=== PATIENT | male | born 1980 | race Caucasian/White ===

== ENCOUNTER 2017-02-10 12:54 | Emergency (ER) | payer MEDICAID ==
--- NOTE | ~2017-02-10 | CR173 ---
[facility] A Service of [facility] [place] RADIOLOGY TEXT RESULTS PATIENT: THELMA SALOMON LOCATION: SED : 84 UNIT #: [id number] AGE: [address]: Ugo Bonner MD SEX: M ORDER DR: [id number] [place] [address] [id number] E MR#: [id number] Acc #: [id number] NAME: THELMA SALOMON : 1980 SEX: M STUDY DATE/TIME: 02/10/2017 13:02 UNIT: SED ROOM: STUDY DESCRIPTION: CR Knee 3 Views Rt Attending Physician: Ugo Bonner M.D. Referring Physician: Ugo Bonner M.D. Ordering Physician: Ugo Bonner M.D. Primary Care Physician: No Primary Care Physician MEDICAL IMAGING REPORT This report is preliminary unless electronic signature is present. EXAM Three-view right knee. HISTORY Posterior knee pain x3 weeks, basketball injury. FINDINGS 3 views of the right knee demonstrates fragmentation of the tibial tubercle and mild prominence of the infrapatellar soft tissues could represent a component of patellar tendinopathy and old Abdirashid-Schlatter disease. No joint effusion. Remainder of the knee joint unremarkable. No loose body. IMPRESSION Fragmentation of the tibial tubercle and prominence of the infrapatellar soft tissues could represent patellar tendinopathy and old [place]-Schlatter disease, however, based on clinical history the patient is having predominantly posterior knee pain. No other significant abnormalities noted within the knee. Dictated by... Manuela Day M.D. THIS IS AN ELECTRONICALLY VERIFIED REPORT Manuela Day M.D. at 02/11/2017 7:29 AM CADENCE/yase TD: 02/10/2017 15:16 JOB #: [id number] [facility] A Service [facility] RADIOLOGY TEXT RESULTS PATIENT: THELMA SALOMON LOCATION: SED : 84 UNIT #: [id number] AGE: [address]: Ugo Bonner MD SEX: M ORDER DR: MEDICAL IMAGING REPORT Page 1 of 1
[~2017-02-10 12:54] MED LIST: IBUPROFEN800 MG PO; KEFLEX500 M1 PO; MOTRIN600 M2 PO; NO MEDICATIONS; PREDNISONE PO; VISTARIL PO
== END 2017-02-10 14:21 | disposition home or self-care (01) ==
LOC: SED 12:54
DX: S89.91XA Unspecified injury of right lower leg, initial encounter (principal); F17.210 Nicotine dependence, cigarettes, uncomplicated; X50.1XXA Overexertion from prolonged static or awkward postures, initial encounter; Y92.830 Public park as the place of occurrence of the external cause
CPT/HCPCS: 73562; 99283